=== PATIENT | male | born 1940 | race Caucasian/White ===

== ENCOUNTER 2022-10-30 11:23 | Day surgery (SDC) | payer MEDICARE, SELFPAY ==
[2022-10-25 14:23] VITALS: BMI 22.6
--- NOTE | 2022-10-29 10:21 | HO.ANESPROP2 ---
HPI - Anesthesia Eval Consult details Narrative: 82yo M for Bilateral Eye Muscle Lateral Rectus Recession and Right Superior Rectus Recession PCP cleared ICD in situ PMFSH Past Medical History Medical History CAD (coronary artery disease) Chronic sinusitis COPD (chronic obstructive pulmonary disease) Essential hypertension Hx of acute myocardial infarction of anterior wall Hyperlipidemia Hypothyroidism Malignant tumor of thyroid gland BREANNA (obstructive sleep apnea) PVD (peripheral vascular disease) Smoker Surgical History Surgical History (Updated 05/03/22 @ 11:57 by Nicolasa Nogueira RN) AICD (automatic cardioverter/defibrillator) present History of hernia repair History of lung surgery History of shoulder surgery History of surgery on lower extremity History of thyroidectomy Hx of CABG Hx of cataract extraction Social History Social History Patient Tobacco Use Status: Current everyday Tobacco user Tobacco use type: Cigarette Use of substances other than those prescribed or required for medical reasons: No Are you DNR?: Yes Advance Directives: No Advance Directives Information Provided: Yes Meds Allergies Allergy/AdvReac Type Severity Reaction Status Date / Time No Known Allergies Allergy Verified 05/02/22 15:28 Home Medications Medication Instructions Recorded Confirmed Last Taken Type aspirin 325 mg tablet 325 mg PO DAILY 05/02/22 10/30/22 Unknown History atorvastatin 40 mg tablet 40 mg PO DAILY 05/02/22 10/30/22 Unknown History clopidogrel 75 mg tablet 75 mg PO DAILY 05/02/22 10/30/22 Unknown History fluticasone furoate 200 1 inh inhalation DAILY 05/02/22 10/30/22 Unknown History mcg-vilanterol 25 mcg/dose inhalation powder (Breo Ellipta) furosemide 20 mg tablet 20 mg PO DAILY 05/02/22 10/30/22 Unknown History ipratropium 0.5 mg-albuterol 3 mg 3 ml inhalation Q4-6H PRN Wheezing 05/02/22 10/30/22 Unknown History (2.5 mg base)/3 mL nebulization soln levothyroxine 125 mcg tablet 125 mcg PO DAILY 05/02/22 10/30/22 10/30/22 History metoprolol succinate 25 mg 25 mg PO DAILY 05/02/22 10/30/22 10/30/22 History tablet,extended release 24 hr mexiletine 150 mg capsule 300 mg PO Q8H 05/02/22 10/30/22 10/30/22 History pembrolizumab 25 mg/mL intravenous 200 mg IV Q3W 05/02/22 10/30/22 Unknown History solution (Keytruda) potassium chloride 10 mEq 10 meq PO DAILY 05/02/22 10/30/22 Unknown History tablet,extended release potassium phosphate, monobasic 500 1,000 mg PO DAILY 05/02/22 10/30/22 Unknown History mg soluble tablet (K-Phos Original) sodium di- and 1 tab PO DAILY 05/02/22 10/30/22 Unknown History monophosphate-potassium phos monobasic 250 mg tablet (Phospha Neutral) spironolactone 25 mg tablet 25 mg PO DAILY 05/02/22 10/30/22 Unknown History tiotropium bromide 18 mcg capsule 1 cap inhalation DAILY 05/02/22 10/30/22 Unknown History with inhalation device (Spiriva with HandiHaler) tramadol 50 mg tablet 50 mg PO Q8H PRN Pain 05/02/22 10/30/22 Unknown History Exam Exam Date and Time: October 29, 2022 1021 Height,Weight and Vital Signs: Height 5 ft 10 in Weight 71.668 kg Narrative Narrative: EKG 09/2022 NSR @ 65 Isolated PVC ICD interr 09/2022 Optivol index normal Battery life >10 years Pacing and sensing thresholds stable ECHO 2019 LV nml in size, wall thickness and systolic function EF 50-55% RV size and function grossly nml No signif valve disease Assessment and Plan Assessment Anesthesia Assessment: Chart Reviewed
[2022-10-30 11:49] VITALS: BMI 21.5
[2022-10-30 11:53] VITALS: BP 93/43; PULSE 58; RESP 20; TEMP 36.3; O2SAT 95
[2022-10-30 12:03] VITALS: BMI 23.5
[2022-10-30] MEDS: Lactated Ringers 1,000 ML 50 ML IVCONT (12:27)
--- NOTE | 2022-10-30 14:38 | HO.OPHTHAL ---
Ophthalmology Operative Note Date of Service: 10/30/22 Narrative: Diagnosis 1. Exotropia 2. Right hypertropia. Procedures 1. Bilateral medial rectus resections of 3 mm 2. Recession of right superior rectus [address] Cheng. Anesthesia general. Complications none. The patient was brought to the operating room placed under general anesthesia. The eyes were prepped and draped in the usual sterile ophthalmic fashion. A lid speculum was placed in the right eye and incisions made down to bare sclera in the in for 0 nasal fornix. The medial rectus muscle was hooked and dissected free of its overlying fascial attachments. A 3 mm resection was marked off with cautery and secured with a double-armed Vicryl suture. The distal muscle was resected and the resection point drawn forward to the original insertion. Conjunctiva was closed with interrupted Vicryl sutures. An incision was then made down to bare sclera in the superior temporal fornix. The superior rectus muscle was hooked and secured with a double-armed Vicryl suture. The muscle was disinserted the globe and reattached to a position 3 mm behind the original insertion. Conjunctiva was closed with interrupted Vicryl sutures. An identical resection of the medial rectus was then performed on the left eye. The patient was then awoken from general anesthesia and discharged to postoperative recovery in good condition.
[2022-10-30 14:50] VITALS: BP 122/51; PULSE 63; RESP 16; TEMP 36.1; O2SAT 99
[2022-10-30 14:55] VITALS: BP 126/53; PULSE 64; RESP 14; O2SAT 99
[2022-10-30 15:00] VITALS: BP 119/60; PULSE 62; RESP 14; O2SAT 97
[2022-10-30 15:05] VITALS: BP 130/67; PULSE 65; RESP 16; O2SAT 98
[2022-10-30 15:20] VITALS: BP 128/62; PULSE 68; RESP 16; TEMP 36.2; O2SAT 98
[2022-10-30] MEDS: Tetracaine HCl/PF 0.5% Oph Sol 4 ML DROPS 1 DROP EYE-BOTH (15:27)
== END 2022-10-30 16:12 | disposition home or self-care (01) ==
PROVIDERS: PCP Internal Medicine; Visit Provider Ophthalmology
PROC: (CPT 67311; principal; 2022-10-30 12:30)
DX: H50.10 Unspecified exotropia (principal); H50.21 Vertical strabismus, right eye; H53.2 Diplopia; I25.10 Atherosclerotic heart disease of native coronary artery without angina pectoris; Z95.1 Presence of aortocoronary bypass graft; Z95.810 Presence of automatic (implantable) cardiac defibrillator; I10 Essential (primary) hypertension; E78.5 Hyperlipidemia, unspecified; E03.9 Hypothyroidism, unspecified; J44.9 Chronic obstructive pulmonary disease, unspecified; G47.33 Obstructive sleep apnea (adult) (pediatric); I73.9 Peripheral vascular disease, unspecified; Z79.51 Long term (current) use of inhaled steroids; Z66 Do not resuscitate; Z79.82 Long term (current) use of aspirin; Z79.899 Other long term (current) drug therapy; F17.210 Nicotine dependence, cigarettes, uncomplicated
CPT/HCPCS: 67311; 67318; J0131; J1100; J2405; J3010